=== PATIENT | female | born 1995 | race American Indian/Alaskan Native ===

== ENCOUNTER 2016-07-12 18:46 | Emergency (ER) | payer SELFPAY ==
[2016-07-12 19:30] LABS: Basophils % (Auto) 0.3 % (0.0-1.8); Eosinophils % (Auto) 1.6 % (0.0-4.3); Hematocrit 33.2 % (30.3-42.9); Hemoglobin 10.7 gm/dl (10.1-14.3); Mean Corpuscular HGB Conc 32 % (30-34); Mean Corpuscular Hemoglobin 27 pg (28-32); Mean Corpuscular Volume 83 fl (79-97); Platelet Count 352 K/mm3 (140-440); Red Cell Distribution Width 16.2 % (13.2-15.2)
[2016-07-12 19:47] LABS: Anion Gap 18 mmol/L; BUN/Creatinine Ratio 11.66; Blood Urea Nitrogen 7 mg/dL (7-17); Calcium 8.9 mg/dL (8.4-10.2); Carbon Dioxide 24 mmol/L (22-30); Chloride 98.2 mmol/L (98-107); Glucose 125 mg/dL (65-100); Potassium 3.6 mmol/L (3.6-5.0); Sodium 137 mmol/L (137-145)
--- NOTE | 2016-07-12 23:09 | Emergency Department Report ---
ED General Adult HPI - General Chief complaint: Chest Pain Stated complaint: CHEST PAIN/ Time Seen by Provider: 07/12/16 22:58 Source: patient Mode of arrival: Ambulatory Limitations: No Limitations - History of Present Illness Initial comments: This is a 21-year-old female who is 7 weeks by dates complaining of shortness of breath. She describes sensation of chest tightness when taking a deep breath. She denies any pain when she is not taking a breath. She denies any air hunger she denies any radiation of pain. She denies any abdominal pain associated with this. She denies cough she denies fever. Is taking vitamins. Denies any family history of blood clots. Denies any leg pains whatsoever or leg edema. Denies smoking. She's been feeling well in general. States that she works at [employer] and be evaluated before spanning the whole day up on her feet today. Onset/Timin -: Gradual, week(s) Location: chest Radiation: non-radiation Severity scale (0 -10): 2 Quality: dull, other (pleuritic) Consistency: intermittent Improves with: none Worsens with: none - Related Data Previous Rx's Medication Instructions Recorded Last Taken Type Lisinopril/Hydrochlorothiazide 1 tab PO QDAY #30 tablet 03/26/16 Unknown Rx [Zestoretic 10-12.5 mg] HYDROcodone/APAP 5-325 [[place] 1 each PO Q6HR PRN #20 tablet 05/19/16 Unknown Rx 5/325] amLODIPine [Norvasc] 5 mg PO DAILY #30 tab 05/19/16 Unknown Rx Allergies Allergy/AdvReac Type Severity Reaction Status Date / Time No Known Allergies Allergy Unverified 03/25/16 22:59 ED Review of Systems ROS: Stated complaint: CHEST PAIN/ Other details as noted in HPI Constitutional: denies: chills, fever Eyes: denies: eye pain, eye discharge, vision change ENT: denies: ear pain, throat pain Respiratory: other (discomfort with deep breath). denies: cough, shortness of breath, wheezing Cardiovascular: denies: chest pain, palpitations Endocrine: no symptoms reported Gastrointestinal: denies: abdominal pain, nausea, diarrhea Genitourinary: denies: urgency, dysuria, discharge Musculoskeletal: denies: back pain, joint swelling, arthralgia Skin: denies: rash, lesions Neurological: denies: headache, weakness, paresthesias Psychiatric: denies: anxiety, depression Hematological/Lymphatic: denies: easy bleeding, easy bruising ED Past Medical Hx - Past Medical History Hx Seizures: Yes (no meds) - Surgical History Additional Surgical History: Sty removal - Social History Smoking Status: Never Smoker Substance Use Type: None - Medications Home Medications: Home Medications Medication Instructions Recorded Confirmed Last Taken Type Lisinopril/Hydrochlorothiazide 1 tab PO QDAY #30 tablet 03/26/16 Unknown Rx [Zestoretic 10-12.5 mg] HYDROcodone/APAP 5-325 [[place] 1 each PO Q6HR PRN #20 tablet 05/19/16 Unknown Rx 5/325] amLODIPine [Norvasc] 5 mg PO DAILY #30 tab 05/19/16 Unknown Rx ED Physical Exam - General Limitations: No Limitations General appearance: alert, in no apparent distress, obese - Head Head exam: Present: atraumatic, normocephalic - Eye Eye exam: Present: normal appearance - ENT ENT exam: Present: mucous membranes moist - Neck Neck exam: Present: normal inspection - Respiratory Respiratory exam: Present: normal lung sounds bilaterally. Absent: respiratory distress - Cardiovascular Cardiovascular Exam: Present: regular rate, normal rhythm. Absent: systolic murmur, diastolic murmur, rubs, gallop - GI/Abdominal GI/Abdominal exam: Present: soft, normal bowel sounds - Extremities Exam Extremities exam: Present: normal inspection - Back Exam Back exam: Present: normal inspection - Neurological Exam Neurological exam: Present: alert, oriented X3 - Psychiatric Psychiatric exam: Present: normal affect, normal mood - Skin Skin exam: Present: warm, dry, intact, normal color. Absent: rash ED Course Vital Signs 07/12/16 18:59 Temperature 99.2 F Pulse Rate 91 H Respiratory 18 Rate Blood Pressure 130/87 O2 Sat by Pulse 100 Oximetry - Reevaluation(s) Reevaluation #1: 07/12/16 23:13 Patient is noted to be quite obese here. She is quite comfortable. Pain is not reproducible. Vital signs are completely normal. Left lites studies are unremarkable. ECG demonstrates no acute pathology. She does not carry cardiac risk factors. I have low suspicion of cardiac etiology. Patient does not PERC out due to . I did have a long conversation with patient regarding further evaluation so were options including chest x-ray venous Doppler studies and CT angios chest. She seems like very low risk factor for PE given her symptomatology and presentation. I do have a strong suspicion that part of the reason here today was mostly for a work note as well. After presenting options to the patient she is comfortable with waiting at home and seeing how she does over the next week. When FOR pain I did encourage return immediately if she has worsening symptoms or any concern whatsoever. Patient is agreeable with the plan. ED Medical Decision Making - Lab Data Result diagrams: 07/12/16 19:13 07/12/16 19:13 - EKG Data EKG shows normal: sinus rhythm (nml), axis (nml), intervals (nml), QRS complexes (nml), ST-T waves (nml) Rate: normal - EKG Data When compared to previous EKG there are: previous EKG unavailable Interpretation: normal EKG Critical care attestation.: If time is entered above; I have spent that time in minutes in the direct care of this critically ill patient, excluding procedure time. ED Disposition Clinical Impression: Dyspnea Qualifiers: Dyspnea type: unspecified Qualified Code(s): R06.00 - Dyspnea, unspecified Disposition: DISCHARGED TO HOME OR SELFCARE Is pt being admited?: No Does the pt Need Aspirin: No Condition: Stable Instructions: Dyspnea (ED) Additional Instructions: Take tylenol as needed for discomforts. Return if you have worsening. Continue with well-baby care including exercise, good diet, and pre- vitamins. Referrals: PRIMARY CARE, [Primary Care Provider] - 3-5 Days Forms: Work/School Release Form(ED) Time of Disposition: 23:08
[2016-07-12 23:18] VITALS: BP 135/79
== END 2016-07-12 23:17 | disposition home or self-care (01) ==
LOC: ED 18:46
DX: O26.891 Other specified pregnancy related conditions, first trimester (principal); R06.00 Dyspnea, unspecified; R07.89 Other chest pain; R56.9 Unspecified convulsions; Z3A.01 Less than 8 weeks gestation of pregnancy
CPT/HCPCS: 36415; 80048; 84484; 85025; 93005; 93010

== ENCOUNTER 2016-09-12 16:39 | Emergency (ER) | payer SELFPAY ==
[2016-09-12 18:33] LABS: Bilirubin,Urine NEG (Negative); Blood,Urine NEG (Negative); Ketones,Urine TR mg/dL (Negative); Leukocyte Esterase,Urine SM (Negative); Mucus,Urine 3+ /HPF; Nitrite,Urine NEG (Negative); Urobilinogen,Urine < 2.0 mg/dL (<2.0)
[2016-09-12 19:19] LABS: Basophils % (Auto) 0.3 % (0.0-1.8); Eosinophils % (Auto) 1.3 % (0.0-4.3); Hemoglobin 11.3 gm/dl (10.1-14.3); Mean Corpuscular HGB Conc 33 % (30-34); Mean Corpuscular Hemoglobin 28 pg (28-32); Mean Corpuscular Volume 85 fl (79-97); Platelet Count 344 K/mm3 (140-440); White Blood Count 9.5 K/mm3 (4.5-11.0)
[2016-09-12 19:34] LABS: Alanine Aminotransferase 16 units/L (7-56); Albumin 3.9 g/dL (3.9-5); Alkaline Phosphatase 59 units/L (35-129); Anion Gap 16 mmol/L; Bilirubin,Total < 0.2 mg/dL (0.1-1.2); Blood Urea Nitrogen 10 mg/dL (7-17); Calcium 9.8 mg/dL (8.4-10.2); Carbon Dioxide 25 mmol/L (22-30); Chloride 99.3 mmol/L (98-107); Glucose 100 mg/dL (65-100); Lipase 31 units/L (13-60); Potassium 3.5 mmol/L (3.6-5.0); Sodium 137 mmol/L (137-145); Total Protein 7.9 g/dL (6.3-8.2)
--- NOTE | 2016-09-12 23:39 | Ultrasound Report ---
FINAL REPORT PROCEDURE: Obstetrical ultrasound. TECHNIQUE: Real-time transabdominal sonography of the uterus, placenta, amniotic fluid, and fetus was performed with image documentation. Measurements were obtained to determine age/size. M-mode Doppler was used to document heartbeat. HISTORY: , pelvic pain. COMPARISON: Obstetrical ultrasound 08/10/2016. FINDINGS: There is a single viable fetus in breech presentation. Cardiac activity is documented at 143 beats per minute. The cervical length is approximately 3.6 centimeters. There are no obvious congenital anomalies. Images of the spine, abdominal cord insert, four-chamber heart, diaphragm, cerebellum and cisterna magna were not obtainable. The amniotic fluid volume appears normal. The placenta is anterior in location with no evidence of placenta previa. The measured parameters are as follows: Biparietal diameter 3.1 centimeters, head circumference 12.1 centimeters, abdominal circumference 9.3 centimeters, femur length 1.9 centimeters. The calculated menstrual age by ultrasound is 15 weeks 5 days. The estimated date of confinement is 03/01/2017. The estimated weight is 129 grams. IMPRESSION: Single viable fetus in breech presentation with a menstrual age of 15 weeks 5 days. No significant abnormalities identified.
--- NOTE | 2016-09-13 00:11 | Emergency Department Report ---
ED Abdominal Pain HPI - General Chief Complaint: Abdominal Pain Stated Complaint: LOW ABD PAIN PREG Time Seen by Provider: 09/13/16 00:02 Source: patient Mode of arrival: Ambulatory Limitations: No Limitations - History of Present Illness Initial Comments: This is a pleasant 21-year-old female who is primip at 15 weeks 6 days by dates. She states that been having increased lower abdominal discomfort. She denies it being his crampiness she describes it more as a pressure. She denies any dysuria. She denies any radiation of the pain. She denies any nausea vomiting. States she is taking good oral intake. She denies any trauma. Patient denies any vaginal bleeding or discharge as well. States that his respiratory disease gone she is felt quite well in general. She is following [facility] for OB care. Her next appointment is in 11 days. Severity scale (0 -10): 0 - Related Data Previous Rx's Medication Instructions Recorded Last Taken Type Lisinopril/Hydrochlorothiazide 1 tab PO QDAY #30 tablet 03/26/16 Unknown Rx [Zestoretic 10-12.5 mg] HYDROcodone/APAP 5-325 [[place] 1 each PO Q6HR PRN #20 tablet 05/19/16 Unknown Rx 5/325] amLODIPine [Norvasc] 5 mg PO DAILY #30 tab 05/19/16 Unknown Rx Metoprolol [Lopressor TAB] 25 mg PO BID #60 tablet 09/13/16 Unknown Rx Allergies Allergy/AdvReac Type Severity Reaction Status Date / Time No Known Allergies Allergy Unverified 03/25/16 22:59 ED Review of Systems ROS: Stated complaint: LOW ABD PAIN PREG Other details as noted in HPI Comment: All other systems reviewed and negative Constitutional: denies: chills, fever Eyes: denies: eye pain, eye discharge, vision change ENT: denies: ear pain, throat pain Respiratory: denies: cough, shortness of breath, wheezing Cardiovascular: denies: chest pain, palpitations Endocrine: no symptoms reported Gastrointestinal: abdominal pain. denies: nausea, diarrhea Genitourinary: denies: urgency, dysuria, discharge Musculoskeletal: denies: back pain, joint swelling, arthralgia Skin: denies: rash, lesions Neurological: denies: headache, weakness, paresthesias Psychiatric: denies: anxiety, depression Hematological/Lymphatic: denies: easy bleeding, easy bruising ED Past Medical Hx - Past Medical History Hx Hypertension: Yes Hx Seizures: Yes (no meds) - Surgical History Additional Surgical History: Sty removal - Social History Smoking Status: Never Smoker Substance Use Type: None - Medications Home Medications: Home Medications Medication Instructions Recorded Confirmed Last Taken Type Lisinopril/Hydrochlorothiazide 1 tab PO QDAY #30 tablet 03/26/16 Unknown Rx [Zestoretic 10-12.5 mg] HYDROcodone/APAP 5-325 [[place] 1 each PO Q6HR PRN #20 tablet 05/19/16 Unknown Rx 5/325] amLODIPine [Norvasc] 5 mg PO DAILY #30 tab 05/19/16 Unknown Rx Metoprolol [Lopressor TAB] 25 mg PO BID #60 tablet 09/13/16 Unknown Rx ED Physical Exam - General Limitations: No Limitations General appearance: alert, in no apparent distress, obese - Head Head exam: Present: atraumatic, normocephalic - Eye Eye exam: Present: normal appearance, EOMI. Absent: scleral icterus - ENT ENT exam: Present: normal exam, normal orophraynx, mucous membranes moist - Neck Neck exam: Present: normal inspection - Respiratory Respiratory exam: Present: normal lung sounds bilaterally. Absent: respiratory distress, wheezes, rales - Cardiovascular Cardiovascular Exam: Present: regular rate, normal rhythm. Absent: systolic murmur, diastolic murmur, rubs, gallop - GI/Abdominal GI/Abdominal exam: Present: soft, normal bowel sounds. Absent: tenderness, guarding, organomegaly - Extremities Exam Extremities exam: Present: normal inspection, full ROM. Absent: tenderness, pedal edema - Back Exam Back exam: Present: normal inspection, full ROM. Absent: CVA tenderness (R), CVA tenderness (L) - Neurological Exam Neurological exam: Present: alert, oriented X3 - Psychiatric Psychiatric exam: Present: normal affect, normal mood - Skin Skin exam: Present: warm, dry, intact, normal color. Absent: rash ED Course Vital Signs 09/12/16 09/12/16 09/13/16 17:28 23:44 00:22 Temperature 98.7 F Pulse Rate 90 88 86 Respiratory 22 16 16 Rate Blood Pressure 158/107 Blood Pressure 152/87 147/88 [Left] O2 Sat by Pulse 98 99 99 Oximetry - Reevaluation(s) Reevaluation #1: 09/13/16 00:57 Patient has an unremarkable examination here. I'm not able to reproduce any abdominal discomforts. She did have a full evaluation with blood tests demonstrate no acute pathology or abnormalities. Urinalysis is also unremarkable. She did have P ultrasound performed demonstrating a healthy fetus at 15 weeks 5 days. No complications were noted with this ultrasound. I did have conversation with the patient regarding routine discomforts of . She is really not so far along that I would anticipate a heaviness of the uterus and baby causing significant pelvic discomfort at this point. Unsure at this point what the etiology of her discomforts are. I did try to be a voice of reassurance however. She denies vaginal discharge and she is declining me doing a pelvic examination as she already had this done by her OB. I did encourage her to follow up with OB as scheduled in 11 days. She is noted to be hypertensive here. There is just a slight amount of protein in the urine noted as well. I do not have any suspicion for preeclampsia at this point. They hypertension actually predates the . She was placed initially on the lisinopril and amlodipine for her blood pressure prior to but stopped these medications when she found out she is . I feel metoprolol will be safer medication for her. We'll discharge her on this. She agrees to keep a log of her blood pressures and report to her OB as they can make further determination whether he would like to continue on. ED Medical Decision Making - Lab Data Result diagrams: 09/12/16 19:02 09/12/16 19:02 Critical care attestation.: If time is entered above; I have spent that time in minutes in the direct care of this critically ill patient, excluding procedure time. ED Disposition Clinical Impression: Qualifiers: Weeks of gestation: 15 weeks Qualified Code(s): Z3A.15 - 15 weeks gestation of HTN (hypertension) Qualifiers: Hypertension type: essential hypertension Qualified Code(s): I10 - Essential ( primary) hypertension Disposition: DISCHARGED TO HOME OR SELFCARE Is pt being admited?: No Does the pt Need Aspirin: No Condition: Stable Instructions: (ED), Hypertension (ED) Additional Instructions: Follow with your OB as scheduled in 11 days. Return if you're having any concerning symptoms such as vaginal bleeding or abdominal pains. Take your blood pressure occasionally and keep a record of this for your B doctor. Cut your metoprolol medication in half if you're feeling lightheaded with the full dose. Prescriptions: Metoprolol [Lopressor TAB] 25 mg PO BID #60 tablet Referrals: PRIMARY CARE, [Primary Care Provider] - 3-5 Days Time of Disposition: 00:13
[2016-09-13 00:23] VITALS: BP 147/88
== END 2016-09-13 00:22 | disposition home or self-care (01) ==
LOC: ED 16:39
DX: O26.892 Other specified pregnancy related conditions, second trimester (principal); R10.30 Lower abdominal pain, unspecified; O16.2 Unspecified maternal hypertension, second trimester; R56.9 Unspecified convulsions; Z3A.15 15 weeks gestation of pregnancy
CPT/HCPCS: 36415; 76805; 80053; 81001; 83690; 84702; 84703; 85025; 86900; 86901

== ENCOUNTER 2016-10-11 18:08 | Outpatient (CLI) | payer SELFPAY ==
[2016-10-11 19:17] LABS: Bacteria,Urine 2+ /HPF (Negative); Bilirubin,Urine NEG (Negative); Blood,Urine NEG (Negative); Ketones,Urine TR mg/dL (Negative); Leukocyte Esterase,Urine MOD (Negative); Mucus,Urine 3+ /HPF; Nitrite,Urine NEG (Negative); Urobilinogen,Urine < 2.0 mg/dL (<2.0)
[2016-10-11] MEDS ORDERED: XYLOCAINE 1% MPF 5 mL INFILTRATI ONE (19:49)
[2016-10-11 19:59] VITALS: BP 129/75
[2016-10-11] MEDS ORDERED: XYLOCAINE MPF 2% ONE (20:30)
[2016-10-11] MEDS ORDERED: ROCEPHIN IM ONE (20:46)
--- NOTE | 2016-10-13 10:05 | Ultrasound Report ---
ULTRASOUND OB LIMITED History: well being Technique: Transabdominal ultrasound with Doppler interrogation. Gestation: Single Position: Breech Placenta: Anterior Placental Grade: 0 Heart Rate: 158 BPM
== END 2016-10-11 20:51 | disposition home or self-care (01) ==
LOC: TRG 18:08
PROVIDERS: ATTEND Obstetrics & Gynecology
DX: O32.1XX0 Maternal care for breech presentation, not applicable or unspecified (principal); O47.02 False labor before 37 completed weeks of gestation, second trimester; Z3A.20 20 weeks gestation of pregnancy
CPT/HCPCS: 76815; 81001; J0696

== ENCOUNTER 2016-10-15 21:39 | Outpatient (CLI) | payer SELFPAY ==
[2016-10-15] MEDS ORDERED: LACTATED RINGERS 1,000 ML IV ONE (22:42)
[2016-10-15 23:08] VITALS: BP 137/75
[2016-10-15 23:14] LABS: Bacteria,Urine 1+ /HPF (Negative); Bilirubin,Urine NEG (Negative); Blood,Urine NEG (Negative); Ketones,Urine NEG (Negative); Leukocyte Esterase,Urine LG (Negative); Mucus,Urine FEW /HPF; Nitrite,Urine NEG (Negative); Protein,Urine <15 mg/dL mg/dL (Negative); Urobilinogen,Urine < 2.0 mg/dL (<2.0)
[2016-10-15] MEDS ORDERED: DIFLUCAN PO ONE (23:28)
== END 2016-10-15 23:50 | disposition home or self-care (01) ==
LOC: TRG 21:39
PROVIDERS: ATTEND Obstetrics & Gynecology
DX: O47.02 False labor before 37 completed weeks of gestation, second trimester (principal); Z3A.20 20 weeks gestation of pregnancy
CPT/HCPCS: 81001; 96360; J7120

== ENCOUNTER 2016-12-27 01:07 | Outpatient (CLI) | payer SELFPAY ==
[2016-12-27 01:57] VITALS: BP 138/88
== END 2016-12-27 02:35 | disposition home or self-care (01) ==
LOC: TRG 01:07
PROVIDERS: ATTEND Obstetrics & Gynecology
DX: O13.3 Gestational [pregnancy-induced] hypertension without significant proteinuria, third trimester (principal); O26.893 Other specified pregnancy related conditions, third trimester; M54.9 Dorsalgia, unspecified; Z3A.31 31 weeks gestation of pregnancy

== ENCOUNTER 2017-02-05 17:00 | Emergency (ER) | payer MEDICAID ==
[2017-02-05 17:54] LABS: Basophils % (Auto) 0.5 % (0.0-1.8); Eosinophils % (Auto) 3.9 % (0.0-4.3); Hematocrit 32.1 % (30.3-42.9); Hemoglobin 10.7 gm/dl (10.1-14.3); Mean Corpuscular HGB Conc 33 % (30-34); Mean Corpuscular Hemoglobin 29 pg (28-32); Mean Corpuscular Volume 86 fl (79-97); Platelet Count 628 K/mm3 (140-440); Red Blood Count 3.74 M/mm3 (3.65-5.03); Red Cell Distribution Width 14.4 % (13.2-15.2)
[2017-02-05 18:13] LABS: Anion Gap 16 mmol/L; BUN/Creatinine Ratio 14.28; Blood Urea Nitrogen 10 mg/dL (7-17); Calcium 9.5 mg/dL (8.4-10.2); Carbon Dioxide 27 mmol/L (22-30); Chloride 102.9 mmol/L (98-107); Glucose 83 mg/dL (65-100); Potassium 4.1 mmol/L (3.6-5.0); Sodium 142 mmol/L (137-145)
[2017-02-05 18:50] LABS: Bacteria,Urine 1+ /HPF (Negative); Bilirubin,Urine NEG (Negative); Blood,Urine NEG (Negative); Ketones,Urine NEG (Negative); Leukocyte Esterase,Urine LG (Negative); Mucus,Urine FEW /HPF; Nitrite,Urine NEG (Negative); Protein,Urine <15 mg/dL mg/dL (Negative); Urobilinogen,Urine < 2.0 mg/dL (<2.0)
--- NOTE | 2017-02-06 00:02 | Emergency Department Report ---
ED Chest Pain HPI - General Chief Complaint: Chest Pain Stated Complaint: CHEST PAIN X 14 HRS Time Seen by Provider: 02/05/17 23:47 Source: patient Mode of arrival: Ambulatory Limitations: No Limitations - History of Present Illness Initial Comments: Patient is a 21-year-old female recently delivered her son 2 weeks ago via C- section and presents to the emergency department with complaint of burning length chest discomfort and abdominal pain that started around 2 AM this morning. Patient states it woke her up out of bed. She was belching a fair amount with it. She denies any associated shortness of breath. She has recently been taking significant amount of ibuprofen. She tried to eat some food earlier this morning and it caused a worsening of her pain. No fevers chills. No nausea no vomiting MD Complaint: chest pain -: Sudden Onset: after eating Pain Location: epigastric Pain Radiation: none Severity: severe Quality: sharp Consistency: intermittent Improves With: nothing Worsens With: eating Context: recent surgery re: denies: nausea, vomting, dyspnea Other Symptoms: denies: cough, fever, syncope - Related Data Previous Rx's Medication Instructions Recorded Last Taken Type Lisinopril/Hydrochlorothiazide 1 tab PO QDAY #30 tablet 03/26/16 Unknown Rx [Zestoretic 10-12.5 mg] HYDROcodone/APAP 5-325 [[place] 1 each PO Q6HR PRN #20 tablet 05/19/16 Unknown Rx 5/325] amLODIPine [Norvasc] 5 mg PO DAILY #30 tab 05/19/16 Unknown Rx Metoprolol [Lopressor TAB] 25 mg PO BID #60 tablet 09/13/16 Unknown Rx Famotidine [Pepcid] 20 mg PO BID #30 tablet 02/06/17 Unknown Rx Omeprazole Magnesium [PriLOSEC Otc] 20 mg PO BID #30 tab 02/06/17 Unknown Rx Allergies Allergy/AdvReac Type Severity Reaction Status Date / Time No Known Allergies Allergy Unverified 03/25/16 22:59 Heart Score - HEART Score History: Slightly suspicious EKG: Normal Age: < 45 Risk factors: No known risk factors Troponin: < normal limit HEART Score: 0 ED Review of Systems ROS: Stated complaint: CHEST PAIN X 14 HRS Other details as noted in HPI Comment: All other systems reviewed and negative Constitutional: denies: chills, fever Eyes: denies: eye pain, eye discharge, vision change ENT: denies: ear pain, throat pain Respiratory: denies: cough, shortness of breath, wheezing Cardiovascular: chest pain. denies: palpitations Endocrine: no symptoms reported Gastrointestinal: abdominal pain. denies: nausea, vomiting, diarrhea Genitourinary: denies: urgency, dysuria, discharge Musculoskeletal: denies: back pain, joint swelling, arthralgia Skin: denies: rash, lesions Neurological: denies: headache, weakness, paresthesias Psychiatric: denies: anxiety, depression Hematological/Lymphatic: denies: easy bleeding, easy bruising ED Past Medical Hx - Past Medical History Hx Hypertension: Yes (no meds) Hx Diabetes: No Hx Deep Vein Thrombosis: No Hx Renal Disease: No Hx Sickle Cell Disease: No Hx Seizures: No Hx Asthma: No Hx HIV: No - Surgical History Additional Surgical History: Sty removal - Family History Family history: no significant - Social History Smoking Status: Never Smoker Substance Use Type: None - Medications Home Medications: Home Medications Medication Instructions Recorded Confirmed Last Taken Type Lisinopril/Hydrochlorothiazide 1 tab PO QDAY #30 tablet 03/26/16 Unknown Rx [Zestoretic 10-12.5 mg] HYDROcodone/APAP 5-325 [[place] 1 each PO Q6HR PRN #20 tablet 05/19/16 Unknown Rx 5/325] amLODIPine [Norvasc] 5 mg PO DAILY #30 tab 05/19/16 Unknown Rx Metoprolol [Lopressor TAB] 25 mg PO BID #60 tablet 09/13/16 Unknown Rx Famotidine [Pepcid] 20 mg PO BID #30 tablet 02/06/17 Unknown Rx Omeprazole Magnesium [PriLOSEC Otc] 20 mg PO BID #30 tab 02/06/17 Unknown Rx ED Physical Exam - General Limitations: No Limitations General appearance: alert, in no apparent distress - Head Head exam: Present: atraumatic, normocephalic - Eye Eye exam: Present: normal appearance. Absent: scleral icterus, conjunctival injection - ENT ENT exam: Present: mucous membranes moist - Neck Neck exam: Present: normal inspection - Respiratory Respiratory exam: Present: normal lung sounds bilaterally. Absent: respiratory distress, wheezes, rales - Cardiovascular Cardiovascular Exam: Present: regular rate, normal rhythm. Absent: systolic murmur, diastolic murmur, rubs, gallop - GI/Abdominal GI/Abdominal exam: Present: soft, tenderness (epigastric), normal bowel sounds. Absent: distended - Extremities Exam Extremities exam: Present: normal inspection - Back Exam Back exam: Present: normal inspection - Neurological Exam Neurological exam: Present: alert, oriented X3 - Psychiatric Psychiatric exam: Present: normal affect, normal mood - Skin Skin exam: Present: warm, dry, intact, normal color. Absent: rash ED Course Vital Signs 02/05/17 02/06/17 17:12 00:08 Temperature 98.6 F Pulse Rate 67 74 Respiratory 18 16 Rate Blood Pressure 158/62 136/74 O2 Sat by Pulse 100 100 Oximetry ED Medical Decision Making - Lab Data Result diagrams: 02/05/17 17:27 02/05/17 17:27 Laboratory Results - last 24 hr 02/05/17 02/05/17 02/05/17 17:27 17:27 17:58 WBC 6.0 RBC 3.74 Hgb 10.7 Hct 32.1 MCV 86 MCH 29 MCHC 33 RDW 14.4 Plt Count 628 H Lymph % (Auto) 51.9 H [place] % (Auto) 7.6 H Eos % (Auto) 3.9 Baso % (Auto) 0.5 Lymph # 3.1 [place] # 0.5 Eos # 0.2 Baso # 0.0 Seg Neutrophils % 36.1 L Seg Neutrophils # 2.2 Sodium 142 Potassium 4.1 Chloride 102.9 Carbon Dioxide 27 Anion Gap 16 BUN 10 Creatinine 0.7 Estimated GFR > 60 BUN/Creatinine Ratio 14.28 Glucose 83 Calcium 9.5 Troponin T < 0.010 Urine Color Yellow Urine Turbidity Clear Urine pH 5.0 Ur Specific [place] 1.014 Urine Protein <15 mg/dl Urine Glucose (UA) Neg Urine Ketones Neg Urine Blood Neg Urine Nitrite Neg Urine Bilirubin Neg Urine Urobilinogen < 2.0 Ur Leukocyte Esterase Lg Urine WBC (Auto) 17.0 H Urine RBC (Auto) 2.0 U Epithel Cells (Auto) 4.0 Urine Bacteria (Auto) 1+ Urine Mucus Few 02/05/17 20:42 WBC RBC Hgb Hct MCV MCH MCHC RDW Plt Count Lymph % (Auto) [place] % (Auto) Eos % (Auto) Baso % (Auto) Lymph # [place] # Eos # Baso # Seg Neutrophils % Seg Neutrophils # Sodium Potassium Chloride Carbon Dioxide Anion Gap BUN Creatinine Estimated GFR BUN/Creatinine Ratio Glucose Calcium Troponin T < 0.010 Urine Color Urine Turbidity Urine pH Ur Specific [place] Urine Protein Urine Glucose (UA) Urine Ketones Urine Blood Urine Nitrite Urine Bilirubin Urine Urobilinogen Ur Leukocyte Esterase Urine WBC (Auto) Urine RBC (Auto) U Epithel Cells (Auto) Urine Bacteria (Auto) Urine Mucus - EKG Data -: EKG Interpreted by Co - EKG Data 02/06/17 00:03 Normal sinus rhythm rate of 63 normal axis normal intervals no ST-T wave changes - Medical Decision Making 21-year-old female here with epigastric and chest pain. Patient has been taking significant medical ibuprofen recently. She does not have any associated shortness of breath. Her EKG is unremarkable. Her labs are unremarkable. She has 2 sets of negative troponins. I do not believe she has a PE. Given her symptoms think it is most likely related to ibuprofen use and . I will treat her with Pepcid and Prilosec and counseled her to stop ibuprofen. Chest x-ray is clear as suspected. Plan to discharge patient home. Discussed all these findings with the patient and she is comfortable with the plan. Portions of this chart were dictated with dictation software. There may be dictation errors contained within this note. Critical care attestation.: If time is entered above; I have spent that time in minutes in the direct care of this critically ill patient, excluding procedure time. ED Disposition Clinical Impression: Epigastric pain, Gastritis Disposition: DC-01 TO HOME OR SELFCARE Is pt being admited?: No Condition: Stable Instructions: Diet for Ulcers and Gastritis (ED), Gastroesophageal Reflux Disease (ED) Additional Instructions: Please stop taking ibuprofen. Continue to take a pain medication please take Tylenol. Prescriptions: Famotidine [Pepcid] 20 mg PO BID #30 tablet Omeprazole Magnesium [PriLOSEC Otc] 20 mg PO BID #30 tab Referrals: PRIMARY CARE, [Primary Care Provider] - 3-5 Days
[2017-02-06 00:09] VITALS: BP 136/74
--- NOTE | 2017-02-06 09:10 | XRay Report ---
PORTABLE CHEST: Chest pain An AP portable view of the chest demonstrates a normal cardiac contour considering the limits of this technique. The lungs are clear with no evidence of infiltrate, fluid or failure. IMPRESSION: Normal portable chest.
== END 2017-02-06 00:37 | disposition home or self-care (01) ==
LOC: ED 17:00
DX: K29.70 Gastritis, unspecified, without bleeding (principal); I10 Essential (primary) hypertension
CPT/HCPCS: 36415; 71010; 80048; 81001; 84484; 85025; 93005; 93010

== ENCOUNTER 2017-03-05 15:26 | Emergency (ER) | payer MEDICAID, OTHER ==
[2017-03-05 16:49] VITALS: BP 164/100
== END 2017-03-05 21:45 | disposition left against medical advice (07) ==
LOC: ED 15:26
DX: M25.532 Pain in left wrist (principal); Z53.21 Procedure and treatment not carried out due to patient leaving prior to being seen by health care provider

== ENCOUNTER 2017-03-24 20:48 | Emergency (ER) | payer SELFPAY ==
[2017-03-24 22:54] VITALS: BP 158/88
== END 2017-03-24 23:13 | disposition left against medical advice (07) ==
LOC: ED 20:48
DX: R10.9 Unspecified abdominal pain (principal); Z53.21 Procedure and treatment not carried out due to patient leaving prior to being seen by health care provider

== ENCOUNTER 2017-05-05 19:22 | Emergency (ER) | payer SELFPAY ==
[2017-05-06] MEDS ORDERED: MORPHINE ONE (01:57)
[2017-05-06] MEDS ORDERED: MOTRIN PO ONE (03:00)
[2017-05-06] MEDS ORDERED: NORVASC PO ONE (03:01)
--- NOTE | 2017-05-06 03:02 | Emergency Department Report ---
Upper Extremity - HPI Chief Complaint: Extremity Injury, Upper Stated Complaint: RASH,LEFT WRIST PAIN Time Seen by Provider: 05/06/17 02:57 Upper Extremity: Left Wrist Occurred When: >5 Days (several months) Symptoms: Yes Pain with Movement, No Deformity, No Limited Range of Movement, No Numbness, No Weakness, No Swelling, No Bruising/Ecchymosis, No Laceration or Abrasion Other History: 21F PMH Obesity, carpal tunnel left wrist p/w c/o persistent left wrist pain worse at the end of the day, radiates to palm of left hand. Denies any direct trauma, fever, chills, sever swellign of wrist. Pt also c/o irritation to skin around her umbilicus for a few days. Deneis fever, chills, abdominal pain, pus drianage, nausea, vomiting, diarrhea. States skin here appeared to be irritated externally. Also requesting refill on amlodipine whech she has not been taking consistently. Deneis CP, SOB, nausea, vomiting, palpitations, blurry vision, headaches, dizziness. ED Review of Systems ROS: Stated complaint: RASH,LEFT WRIST PAIN Other details as noted in HPI Constitutional: denies: chills, fever Eyes: denies: eye pain, eye discharge, vision change ENT: denies: ear pain, throat pain Respiratory: denies: cough, shortness of breath, wheezing Cardiovascular: denies: chest pain, palpitations Endocrine: no symptoms reported Gastrointestinal: denies: abdominal pain, nausea, diarrhea Genitourinary: denies: urgency, dysuria, discharge Musculoskeletal: as per HPI (left sided carpal tunnel syndrome hx). denies: back pain, joint swelling, arthralgia Skin: as per HPI, pruritus (of umbilicus). denies: rash, lesions Neurological: denies: headache, weakness, paresthesias Psychiatric: denies: anxiety, depression Hematological/Lymphatic: denies: easy bleeding, easy bruising ED Past Medical Hx - Past Medical History Previous Medical History?: Yes Hx Hypertension: Yes (no meds) Hx Diabetes: No Hx Deep Vein Thrombosis: No Hx Renal Disease: No Hx Sickle Cell Disease: No Hx Seizures: No Hx Asthma: No Hx HIV: No Additional medical history: Obesity - Surgical History Past Surgical History?: Yes Additional Surgical History: Sty removal. C-Sec - Social History Smoking Status: Never Smoker Substance Use Type: None - Medications Home Medications: Home Medications Medication Instructions Recorded Confirmed Last Taken Type Lisinopril/Hydrochlorothiazide 1 tab PO QDAY #30 tablet 03/26/16 Unknown Rx [Zestoretic 10-12.5 mg] HYDROcodone/APAP 5-325 [[place] 1 each PO Q6HR PRN #20 tablet 05/19/16 Unknown Rx 5/325] amLODIPine [Norvasc] 5 mg PO DAILY #30 tab 05/19/16 Unknown Rx Metoprolol [Lopressor TAB] 25 mg PO BID #60 tablet 09/13/16 Unknown Rx Famotidine [Pepcid] 20 mg PO BID #30 tablet 02/06/17 Unknown Rx Omeprazole Magnesium [PriLOSEC Otc] 20 mg PO BID #30 tab 02/06/17 Unknown Rx Ketoconazole 1 applicatio TP BID #1 cream..g. 05/06/17 Unknown Rx Mupirocin [Bactroban 2% CREAM] 1 applicatio TP TID #1 cream 05/06/17 Unknown Rx Naproxen 500 mg PO BID PRN #20 tablet 05/06/17 Unknown Rx amLODIPine [Norvasc] 5 mg PO DAILY #30 tab 05/06/17 Unknown Rx Upper Extremity Exam - Exam General: Vital signs noted. No distress. Alert and acting appropriately. Head and Torso: No HEENT Abnormality, No Neck Tenderness, No Chest/Lungs Abnormality, No Abdominal Tenderness, No Back Tenderness Shoulder Exam: Yes Normal Range of Motion in Shoulder, No Shoulder Tenderness, No Clavicle Tenderness, No Shoulder Deformity, No AC Joint Tenderness Arm Exam: No Arm/Humerus Tenderness, No Arm Deformity Elbow: No Elbow Tenderness, No Normal Range of Motion in Elbow, No Elbow Deformity Forearm: No Forearm Tenderness, No Forearm Deformity, No Pain with Pronation, No Pain with Supination Wrist: Yes Normal ROM in Wrist (flexion and extension intact, + tinel sign, + phalen sign), No Wrist Tenderness, No Wrist Deformity, No Snuffbox Tenderness, No Pain with Axial Thumb Compression Hand: Yes Normal ROM in Digit(s) (ROM intact PIP, DIP, MCP all fingers), No Hand Tenderness, No Hand Deformity, No Digit Tenderness, No Digit(s) Deformity, No Tendon Dysfunction CMS Exam: Yes Normal Distal Pulses (distal cap refill, radial, ulnar and brachial pulses intact), Yes Normal Capillary Refill, Yes Normal Distal Sensation, No Broken Skin ED Course Vital Signs 05/05/17 05/05/17 20:22 20:40 Temperature 98.0 F 98.0 F Pulse Rate 100 H 99 H Respiratory 18 17 Rate Blood Pressure 182/112 173/101 O2 Sat by Pulse 98 98 Oximetry ED Medical Decision Making - Medical Decision Making A/P: Carpal tunnel syndrome left wrist, asymptomatic hypertension, intertrigo 1-left wrist splint, naproxen when necessary, follow-up with orthopedics 2-will refill patient's amlodipine. Patient states she has not been taking it consistently. Patient does not have chest pain palpitations shortness of breath nausea vomiting abdominal pain dizziness or headaches or blurry vision. Asymptomatic hypertension, I advised pt to take her medicine and follow-up with primary care and keep a BP log 3-pt has intertrigo of umbilicus, will treat topically with ketoconazole and hydrocortisone, bactroban- Critical care attestation.: If time is entered above; I have spent that time in minutes in the direct care of this critically ill patient, excluding procedure time. ED Disposition Clinical Impression: Intertrigo, Carpal tunnel syndrome on left, Asymptomatic hypertension Disposition: TO HOME OR SELFCARE Is pt being admited?: No Does the pt Need Aspirin: No Condition: Stable Instructions: Hypertension (ED), Carpal Tunnel Syndrome (ED), RICE Therapy (ED) Prescriptions: amLODIPine [Norvasc] 5 mg PO DAILY #30 tab Ketoconazole 1 applicatio TP BID #1 cream..g. Mupirocin [Bactroban 2% CREAM] 1 applicatio TP TID #1 cream Naproxen 500 mg PO BID PRN #20 tablet PRN Reason: Pain Referrals: [facility] [Outside] - 3-5 Days [facility] [Outside] - 3-5 Days Forms: Work/School Release Form(ED) Time of Disposition: 04:29
[2017-05-06 05:50] LABS: Basophils % (Auto) 0.4 % (0.0-1.8); Hemoglobin 9.7 gm/dl (10.1-14.3); Mean Corpuscular HGB Conc 33 % (30-34); Mean Corpuscular Volume 77 fl (79-97); Platelet Count 358 K/mm3 (140-440); Red Cell Distribution Width 16.5 % (13.2-15.2); White Blood Count 7.5 K/mm3 (4.5-11.0)
[2017-05-06] MEDS ORDERED: CATAPRES PO ONE (05:53)
[2017-05-06 06:00] LABS: Mean Corpuscular Hemoglobin 25 pg (28-32)
[2017-05-06 06:05] LABS: Alanine Aminotransferase 10 units/L (7-56); Albumin 4.2 g/dL (3.9-5); Albumin/Globulin Ratio 1.2 %; Alkaline Phosphatase 73 units/L (35-129); Anion Gap 15 mmol/L; BUN/Creatinine Ratio 22; Blood Urea Nitrogen 11 mg/dL (7-17); Calcium 8.8 mg/dL (8.4-10.2); Carbon Dioxide 27 mmol/L (22-30); Chloride 95.9 mmol/L (98-107); Glucose 103 mg/dL (65-100); Potassium 3.5 mmol/L (3.6-5.0); Sodium 134 mmol/L (137-145); Total Protein 7.7 g/dL (6.3-8.2)
[2017-05-06 06:06] LABS: Bilirubin,Direct < 0.2 mg/dL (0-0.2)
[2017-05-06 06:10] VITALS: BP 125/83
== END 2017-05-06 06:00 | disposition home or self-care (01) ==
LOC: ED 19:22
DX: G56.02 Carpal tunnel syndrome, left upper limb (principal); I10 Essential (primary) hypertension; L30.4 Erythema intertrigo
CPT/HCPCS: 36415; 80048; 80074; 84484; 85025; 93005; 93010; 99283; J2270